=== PATIENT | female | born 1965 | race Two or more races ===

== ENCOUNTER 2019-03-18 09:57 | Inpatient (IN) | payer OTHER ==
[~2019-03-18] VITALS: Ht 157.5 cm; Wt 108.9 kg
[2019-03-18] MEDS ORDERED: COZAAR50 MG PO (10:48)
[2019-03-25] MEDS ORDERED: OXYC1TAB9 PO (07:39)
[2019-03-25] MEDS ORDERED: BACTRIM DS TAB1 EACH PO (07:39)
[2019-03-25] MEDS ORDERED: INTEGRA PLUS C1 EACH PO (07:39)
[2019-03-25] MEDS ORDERED: XARELTO10 MG PO (07:39)
== END 2019-03-25 11:53 | DRG 470 ==
LOC: O/R 10:30 → SURH 03-22 05:05 → O/R 03-22 05:05 → SURH 03-22 07:00
PROVIDERS: ADMIT Orthopaedic Surgery Sports Medicine
PROC: 0SRC0J9 Replacement of Right Knee Joint with Synthetic Substitute, Cemented, Open Approach (ICD-10-PCS; principal; 2019-03-22 07:00)
DX: M17.11 Unilateral primary osteoarthritis, right knee (principal); I10 Essential (primary) hypertension; M65.861 Other synovitis and tenosynovitis, right lower leg

== ENCOUNTER 2019-03-18 13:30 | Outpatient (CLI) | payer OTHER ==
[~2019-03-18 13:30] MED LIST: COZAAR50 MG PO
== END 2019-03-18 15:21 | disposition home or self-care (01) ==
LOC: NUCLEAR 13:30
DX: I87.2 Venous insufficiency (chronic) (peripheral) (principal)

== ENCOUNTER 2022-08-21 07:15 | Inpatient (IN) | payer OTHER ==
[~2022-08-21] VITALS: Ht 157.5 cm; Wt 122.5 kg
[~2022-08-21 07:15] MED LIST changes: +BACTRIM DS TAB1 EACH PO; +INTEGRA PLUS C1 EACH PO; +OXYC1TAB9 PO; +XARELTO10 MG PO
[2022-08-28] MEDS ORDERED: OXYC1TAB9 PO (08:22)
[2022-08-28] MEDS ORDERED: XARELTO10 MG PO (08:22)
[2022-08-28] MEDS ORDERED: BACTRIM DS TAB1 EACH PO (08:22)
[2022-08-28] MEDS ORDERED: INTEGRA PLUS C1 EACH PO (08:22)
== END 2022-08-28 17:16 | DRG 470 ==
LOC: O/R 08-26 06:36 → SURH 08-26 07:15 → SURG 08-26 14:39
PROVIDERS: ADMIT Orthopaedic Surgery Sports Medicine; ATTEND Orthopaedic Surgery Sports Medicine
PROC: 3E0F7SF Introduction of Other Gas into Respiratory Tract, Via Natural or Artificial Opening (ICD-10-PCS; 2022-08-26)
PROC: 0SRD0J9 Replacement of Left Knee Joint with Synthetic Substitute, Cemented, Open Approach (ICD-10-PCS; principal; 2022-08-26 10:15)
DX: M17.12 Unilateral primary osteoarthritis, left knee (principal); I10 Essential (primary) hypertension